=== PATIENT | male | born 1950 | race Caucasian/White ===

== ENCOUNTER 2019-05-12 07:53 | Outpatient (RCR) | payer MEDICARE, OTHER, SELFPAY ==
--- NOTE | 2019-05-12 08:36 | PTOPEVAL ---
Thank you for referring this patient to [facility]. Please review, sign, date and return this plan of care [facility]. I agree with and certify that the following plan of care is medically necessary. Referring Physician Date Admitting Provider: Attending Provider: PHYSICIAN NOT ON STAFF Referring Provider: *PT Outpatient Evaluation Start: 05/12/19 08:03 Freq: Status: Active Protocol: Document 05/12/19 08:00 IVÁN (Rec: 05/12/19 08:36 [facility] [id number]) Therapy Assessment Status Assessment Status Assessment Status Evaluation Evaluation Information Problem Diagnosis low back pain Onset 05/07/19 Additional Evaluation Detail oswestry = Subjective Information patient reports he is coming Query Text:As Reported By Patient/ to therapy for pain in his low Family back. he reprots he does have a history of low back pain, but has been flared up for a few months. he reports his pain mostly comes and goes with activities. he reports he did fall off a ladder around the time of the pain coming back. he reports the x-rays of the back were negative. patient reports he has increased pain with activity, twisting, bending/lifting, and reports the pain is across the lower portion of his back on both sides. he reports he does have some numbness and tingling in both legs down the full length of the legs all over. he reports he has tingling more than numbness in the legs. Prior Level of Function Comments Additional Prior Level of Function patient reports he has trouble Comments going up and down ladders, going up and down steps, and lifting and carrying objects. he reports he was having no issues with this prior to falling off his ladder. patient reports he is retired. Pain Assessment Timing of Pain Assessment Timing of Pain Assessment Assessment Pain Scale Pain Scale Used Numeric (1 - 10) Self Report Pain Assessment Lower Back Reported Pain Level 2 Pain Descriptio
--- NOTE | 2019-06-08 15:34 | PCPTNOTE ---
06/08/19-pt rescheduled today's appointment. -.
== END 2019-06-19 09:28 | disposition home or self-care (01) ==
LOC: CHSPT 07:53
PROVIDERS: PCP Family Medicine
DX: M54.5 Low back pain (principal)
CPT/HCPCS: 97014; 97110; 97161; 97530; G0283

== ENCOUNTER 2020-01-15 09:08 | Outpatient (RCR) | payer MEDICARE, OTHER, SELFPAY ==
--- NOTE | 2020-01-15 14:04 | PTOPEVAL ---
Thank you for referring Griffin Neff to [facility] [place].? The patient is scheduled to be seen for therapy? ____x/week for ___ weeks. Please review, sign, date and return this plan of care [facility]. I agree with and certify that the following plan of care is medically necessary. Referring Physician Date Admitting Provider: Attending Provider: Diamond Liriano, [employer] SYSTEM[employer] ADMINISTRATOR Referring Provider: *PT Outpatient Evaluation Start: 01/15/20 09:18 Freq: Status: Active Protocol: Document 01/15/20 09:15 [facility] (Rec: 01/15/20 09:56 [facility] [id number]) Therapy Assessment Status Assessment Status Assessment Status Evaluation Evaluation Information Problem Diagnosis low back pain Onset 01/08/20 Subjective Information patient reports last week he Query Text:As Reported By Patient/ got out of his car to pump gas Family and his back was locked up across the back near the bottom. he reports he went to the [facility] and was put on muscle relaxors. he reports he returned to [facility] today and is still sore. he reports he is coming to therapy to try and resolve the issue. he reports he is having increased pain in the lower back with bending, standing, position changes. he reports quick movements are worse. he reports no symptoms going down the legs. Prior Level of Function Comments Additional Prior Level of Function prior to last saturday, patient Comments reports no issues with his back. he reports he was living out his life able to travel, walk, and participate in community activities with his and family. Pain Assessment Timing of Pain Assessment Timing of Pain Assessment Assessment Pain Scale Pain Scale Used Numeric (1 - 10) Self Report Pain Assessment Lower Back Reported Pain Level 2 Pain Description Aching,Dull,Sharp Lowest Pain Intensity 2 Greatest Pain Intensity 10 Pain Score Pain Score 2: Self Report Cervical and Lumbar ROM Lumbar ROM Lumbar Flexion Active Mid [place] Query Text:Hands to: Lumbar Extension (0-40) 0 Query Text:Active in Degrees Cervical and Lumbar Muscle Testing Lumbar Strength Upper Abdominal Strength 3+F
== END 2020-02-03 23:59 | disposition home or self-care (01) ==
LOC: CHSPT 09:08
PROVIDERS: Visit Provider Nurse Practitioner
DX: M54.5 Low back pain (principal)
CPT/HCPCS: 97014; 97110; 97161; 97530; G0283

== ENCOUNTER 2020-07-25 08:20 | Outpatient (CLI) | payer MEDICARE, SELFPAY ==
[2020-07-25 10:51] LABS: Alanine Aminotransferase 23 U/L (16-63); Albumin Level 3.8 g/dL (3.4-5.0); Alkaline Phosphatase 67 U/L (46-116); Anion Gap 11 mmol/L (8-16); Aspartate Amino Transferase 13 U/L (15-37); Bilirubin,Total 0.3 mg/dL (0.00-1.00); Blood Urea Nitrogen 16 mg/dL (7-18); Calcium 8.8 mg/dL (8.5-10.1); Carbon Dioxide 25 mmol/L (21-32); Chloride 103 mmol/L (98-108); Cholesterol 235 mg/dL (0-200); Estimated Glomerular Filt Rate > 60; Glucose 100 mg/dL (70-99); HDL Direct 47 mg/dL (40-60); LDL Cholesterol Calculated 149 mg/dL (<130); Osmolality Calculated 289 mOsm/kg (285-295); Potassium 4.4 mmol/L (3.5-5.1); Sodium 139 mmol/L (136-145); Total Protein 7.1 g/dL (6.4-8.2); Triglycerides 197 mg/dL (0-150)
[2020-07-25 11:09] LABS: Free T4 Free Thyroxine Reflex 0.67 ng/dL (0.76-1.46); Thyroid Stimulating Hormone Reflex 5.19 u/IU/mL (0.36-3.74)
== END 2020-07-25 08:21 | disposition home or self-care (01) ==
LOC: CHSLAB 08:22
PROVIDERS: PCP Nurse Practitioner Family; Visit Provider Urology
DX: N40.1 Benign prostatic hyperplasia with lower urinary tract symptoms (principal); Z80.42 Family history of malignant neoplasm of prostate; E78.2 Mixed hyperlipidemia; I10 Essential (primary) hypertension
CPT/HCPCS: 36415; 80053; 80061; 84153; 84439; 84443

== ENCOUNTER 2021-10-05 06:52 | Observation (INO) | payer MEDICARE, OTHER, SELFPAY ==
[2021-10-05] VITALS (13 sets, daily range): BP systolic 105–156; BP diastolic 77–98; PULSE 53–86; RESP 10–20; TEMP 36.1–36.7; O2SAT 93–98; BMI 30.9
--- NOTE | ~2021-10-05 | CT_ITS ---
EXAMINATION: CT brain wo con DATE: 10/05/2021 07:11 INDICATION: Left-sided numbness and tingling. Dizziness. TECHNIQUE: Computed tomography (CT) of the head was performed without intravenous contrast. The mA wa s adjusted according to patient size. Iterative reconstruction technique was employed. The dose-lengt h product was 605.33 mGy-cm. COMPARISON: None FINDINGS: There is no intracranial hemorrhage, acute infarction, or abnormal intracranial mass lesion . The ventricles are normal in size. There is mild mucosal thickening in the paranasal sinuses. There are changes of ethmoidectomies. There is a trace left mastoid effusion. IMPRESSION: 1. Normal brain. Reviewed, dictated and finalized at location A. IMPRESSION: 1. Normal brain.
--- NOTE | ~2021-10-05 | US_ITS ---
EXAMINATION: US carotid duplex BI DATE: 10/05/2021 11:48 INDICATION: Stroke. TECHNIQUE: Grayscale, color Doppler, and pulsed Doppler images of the cervical carotid arteries were obtained. The degree of vessel stenosis is placed in one of the following categories: normal, <50%, 5 0-69%, >=70% but less than near-occlusion, near-occlusion, or total occlusion. Note that percent sten osis relative to normal distal artery lumen diameter is indirectly measured from velocity measurement s as described by Martin, et al. Radiology 2003; 229:340-346. COMPARISON: None. FINDINGS: RIGHT: The right common carotid artery (CCA) peak systolic velocity (PSV) is 80 cm/s. The right internal car otid artery (ICA) PSV is 65 cm/s. The right ICA end-diastolic velocity (EDV) is 19 cm/s. The right IC A/CCA PSV ratio is 0.8. Grayscale and color Doppler images yield an estimate of <50% diameter reducti on from plaque in the ICA. There is antegrade flow in the right vertebral artery. LEFT: The left CCA PSV is 68 cm/s. The left ICA PSV is 85 cm/s. The left ICA EDV is 33 cm/s. The left ICA/C CA PSV ratio is 1.2. Grayscale and color Doppler images yield an estimate of <50% diameter reduction from plaque in the ICA. There is antegrade flow in the left vertebral artery. IMPRESSION: 1. <50% stenosis in the right internal carotid artery. 2. <50% stenosis in the left internal carotid artery. Reviewed, dictated and finalized at location A.
--- NOTE | 2021-10-05 07:02 | ED.NEUROSD ---
HPI - Neuro Symptoms/Deficit General Chief Complaint: Neuro Symptoms/Deficit Stated Complaint: Numbness L side Time Seen by Provider: 10/05/21 07:02 Source: patient Mode of arrival: ambulatory Limitations: no limitations History of Present Illness HPI Narrative: 70-year-old male, smoker with a history of dyslipidemia, BPH presents to the a 2 hour history -- numbness and tingling left half of body when he woke up morning at a.m.. Went to sleep woke again 6.30 AM when noted that he had -- ongoing numbness without any tingling -- no motor deficits. No speech impairment. No Prior history stroke/ TIA patient has [facility] and has had negative stress test Onset (ago): hour(s) ( woke up this the above symptoms) History of same: No Severity: mild Quality: numb and tingling Relieving factors: none Exacerbating factors: none Context: sudden onset On Anticoagulants: No Associated symptoms: denies other symptoms Related Data Home Medications Medication Instructions Recorded Confirmed aspirin 81 mg tablet,delayed 81 mg PO DAILY 01/05/20 10/05/21 release (Adult Low Dose Aspirin) finasteride 5 mg tablet 5 mg PO DAILY 01/05/20 10/05/21 colesevelam 625 mg tablet (WelChol) 2,500 mg PO QPM 04/19/20 10/05/21 Allergies Allergy/AdvReac Type Severity Reaction Status Date / Time acetaminophen [From Vicodin] Allergy Severe unknown Verified 10/05/21 07:06 hydrocodone [From Vicodin] Allergy Severe unknown Verified 10/05/21 07:06 minocycline [From Minocin] Allergy Unknown unknown Verified 10/05/21 07:06 Penicillins Allergy Unknown unknown Verified 10/05/21 07:06 Sulfa (Sulfonamide Allergy Unknown unknown Verified 10/05/21 07:06 Antibiotics) tramadol Allergy Unknown Unknown Verified 10/05/21 07:06 Review of Systems Review of Systems: All systems reviewed & are unremarkable except as noted in HPI and below ROS unobtainable: Yes unobtainable due to endotracheal tube Constitutional: Constitutional: Reports as per HPI and Reports no additional constitutional complaints Eyes: Eyes: Reports as per HPI and Reports no additional eye complaints ENT: Reports system reviewed and no additional complaints, except as documented and Reports as per HPI Cardiovascular: Cardiovascular: Reports as per HPI and Reports no additional cardiovascular complaints Respiratory: Respiratory: Reports as per HPI and Reports no additional respiratory complaints Gastrointestinal: Gastrointestinal: Reports as per HPI and Reports no additional gastrointestinal complaints Genitourinary: Genitourinary: Reports no additional male genitourinary complaints and Reports as per HPI Musculoskeletal: Musculoskeletal: Reports no additional musculoskeletal complaints and Reports as per HPI Integumentary/Breasts: Skin/Breast: Reports system reviewed and no additional complaints, except as docu and Reports as per HPI Neurologic: Reports system reviewed and no additional complaints, except as documented and Reports as per HPI Psychiatric: Psychiatric: Reports no additional psychiatric complaints and Reports as per HPI Endocrine: Endocrine: Reports no additional endocrine complaints Hematologic/Lymphatic: Hematologic/Lymphatic: Reports no additional hematologic/lymphatic complaints and Reports as per HPI Allergic/Immunologic: Allergic/Immunologic: Reports no additional allergic/immunologic complaints and Reports as per HPI [facility] Social History Social History Smoking packs per day: 1 Smoking cigarettes per day: 20.0 Years smoked: 55 Smoking pack-years: 55.00 Smoking status: Current every day smoker Tobacco type: cigarettes Second hand tobacco smoke exposure: No Exam Const: General: healthy appearing, no acute distress and alert HENMT: Head: normal to inspection Ears: external ears normal General nose exam: Normal external nose present Face and sinus: normal facial exam
--- NOTE | 2021-10-05 07:14 | ECG_ITS ---
Measurements Intervals [place] Rate: 76 P: 77 OK: 217 QRS: -29 QRSD: 105 T: 30 QT: 416 QTc: 468 Interpretive Statements SINUS RHYTHM WITH BORDERLINE FIRST DEGREE AV BLOCK NO PREVIOUS ECG AVAILABLE FOR COMPARISON Electronically Signed On 10-05-2021 20:29:51 CDT by Rayna Machdao M.D.
[2021-10-05 07:18] LABS: Glucose Point of Care 110 mg/dl (65-105)
[2021-10-05] MEDS: ASPIRIN 81 MG CHEWABLE TABLET 324 MG PO (07:25)
[2021-10-05 07:33] LABS: Basophils Absolute Auto 0.04 K/mm3 (0.00-0.10); Basophils Percent Auto 0.5 % (0.0-1.0); Eosinophils Absolute Auto 0.14 K/mm3 (0.02-0.50); Eosinophils Percent Auto 1.8 % (1.0-6.0); Hemoglobin 14.4 g/dL (12.4-15.3); Immature Granulocyte Absolute 0.02 K/mm3 (0.00-0.00); Immature Granulocyte Percent A 0.3 % (0.0-0.0); Lymphocytes Percent Auto 42.5 % (18.0-42.0); Mean Corpuscular HGB Conc 32.7 g/dL (32.0-36.0); Mean Corpuscular Hemoglobin 32.9 pg (27.0-31.0); Mean Corpuscular Volume 100.5 fL (78.0-102.0); Mean Platelet Volume 9.4 fl (8.7-11.0); Monocytes Absolute Auto 0.78 K/mm3 (0.10-0.90); Monocytes Percent Auto 10.1 % (2.0-11.0); Neutrophils Absolute Auto 3.5 K/mm3 (1.7-7.2); Neutrophils Percent Auto 44.8 % (50.0-70.0); Platelet Count Result 283 K/mm3 (150-420); Red Blood Count 4.38 M/mm3 (4.70-6.10); Red Cell Distribution Width 13.4 % (11.6-14.4); White Blood Count 7.8 K/mm3 (4.8-10.8)
[2021-10-05 07:47] LABS: Partial Thromboplastin Time 28.7 SEC (23.90-30.70); Prothrombin Time 10.3 Seconds (9.50-12.10)
[2021-10-05 07:55] LABS: Amphetamine Screen Urine Negative (Negative); Barbiturate Screen Urine Negative (Negative); Benzodiazepines Screen Urine Negative (Negative); Cannabinoid Screen Urine Negative (Negative); Cocaine Screen Urine Negative (Negative); Methadone Screen Urine Negative (Negative); Opiate Screen Urine Negative (Negative); Phencyclidine Screen Urine Negative (Negative)
[2021-10-05 07:57] LABS: Alanine Aminotransferase 34 U/L (16-63); Albumin Level 3.4 g/dL (3.4-5.0); Alkaline Phosphatase 67 U/L (46-116); Anion Gap 11 mmol/L (8-16); Aspartate Amino Transferase 14 U/L (15-37); Bilirubin,Total 0.3 mg/dL (0.00-1.00); Blood Urea Nitrogen 20 mg/dL (7-18); Calcium 8.5 mg/dL (8.5-10.1); Carbon Dioxide 23 mmol/L (21-32); Chloride 107 mmol/L (98-108); Estimated CRCL calculation 55 ml/min; Estimated Glomerular Filt Rate > 60; Glucose 125 mg/dL (70-99); NT Pro B Type Natriuretic Pept 23 pg/mL (0-125); Osmolality Calculated 295 mOsm/kg (285-295); Sodium 141 mmol/L (136-145); Thyroid Stimulating Hormone 3.21 uIU/mL (0.36-3.74); Total Protein 7.1 g/dL (6.4-8.2); Troponin I 7.9 ng/L (0.00-60.4)
[2021-10-05 07:58] LABS: Ethanol < 3 mg/dL (0-6)
--- NOTE | 2021-10-05 09:10 | ADMGEN ---
This patient, Griffin Neff, was admitted to 2nd Floor Room 203-2 to rule out stroke. Patient/family oriented to hospital policies and general routines including ID bracelet, bed and alarms, visiting hours, pain management, procedures, bathroom and other care routines, personal items, smoking policy, room service/diet, and visiting hours. Information on how to activate the Rapid Response Team has been discussed. Patient/Family are encouraged to report perceived risks to care and to ask questions if they do not understand what they are told or what they should do.
[2021-10-05] MEDS: ASPIRIN 81 MG ENTERIC TABLET PO (10:59)
[2021-10-05] MEDS: FINASTERIDE 5 MG TABLET PO (10:59)
--- NOTE | 2021-10-05 11:14 | PC.NURSE ---
spoke with patient about medication list. Patient states he no longer takes the welchol. Provided with med list. Medications added to medlist.
[2021-10-06] VITALS: BP 120/78; PULSE 55; RESP 18; TEMP 36.6; O2SAT 95
--- NOTE | 2021-10-06 04:48 | PC.NURSE ---
VS at 8PM bp-152/81 P-56 T-97.7 R-18 VS at 4 AM bp-140/89 p-83 R-20 T-98.9
[2021-10-06 07:45] VITALS: BP 146/92; PULSE 56; RESP 16; TEMP 36.3; O2SAT 95
--- NOTE | 2021-10-06 07:55 | PM.SD2 ---
Same Day Admit/Disch: HPI History of Present Illness Chief complaint: CVA Narrative: Griffin Neff is a 70 year old male that has had some numbness and tingling on the left side in his toes and his finger. Patient felt it when he got out of the bed and stood on his tippy toes. PMFSH Social History Social History Smoking packs per day: 1 Smoking cigarettes per day: 20.0 Years smoked: 50 Smoking pack-years: 50.00 Smoking status: Current every day smoker Tobacco type: cigarettes Second hand tobacco smoke exposure: No Alcohol intake: current Drinks per week: 3 Substance use: never Substance use type: does not use Spiritual care concerns: No Comments At time as signature, I have reviewed and agree with nursing past medical, social, surgical and family history. Please see nursing chart for further information. There is no relevant family history pertinent to the presenting complaint. Same Day Admit/Disch: Med Pre-admit Medications Home Medications Medication Instructions Recorded Confirmed Type aspirin 81 mg tablet,delayed 81 mg PO DAILY 01/05/20 10/05/21 History release (Adult Low Dose Aspirin) finasteride 5 mg tablet 5 mg PO DAILY 01/05/20 10/05/21 History azelastine 137 mcg (0.1 %) nasal See Rx Instructions .Route 04/24/21 10/05/21 Rx spray aerosol .COMPLEX #30 mL alfuzosin 10 mg tablet,extended 10 mg PO DAILY 10/05/21 10/05/21 History release 24 hr ezetimibe 10 mg tablet 10 mg PO DAILY 10/05/21 10/05/21 History albuterol sulfate 90 mcg/actuation 2 puff inhalation QID PRN 10/06/21 Rx aerosol inhaler shortness of breath or wheezing #8.5 grams Exam Narrative: GENERAL:Well-appearing, well-nourished, and in no acute distress. HEAD:Normocephalic, atraumatic. EYES: PERRLA and EOMI. ENT: Nares clear, no rhinorrhea or epistaxis. Mucous membranes moist. NECK: Supple. CHEST: Clear to auscultation. No respiratory distress. HEART: Regular rate and rhythm. Normal peripheral pulses. ABDOMEN: Soft, nontender, nondistended, normal active bowel sounds. EXTREMITIES: Normal range of motion. No edema. SKIN: Warm, dry, no rash. left arm abrasion NEURO: No focal deficits. Alert and oriented x3. DS: Data Data Completed and Pending Labs on day of discharge: Labs from last 24 hours 10/05/21 10/05/21 10/05/21 07:43 07:28 07:28 Sodium 141 Potassium 4.0 Chloride 107 Carbon Dioxide 23 Anion Gap 11 BUN 20 H Creatinine 1.14 Estim Creat Clear Calc 55 Estimated GFR > 60 Glucose 125 H Calculated Osmolality 295 Calcium 8.5 Total Bilirubin 0.3 AST 14 L ALT 34 Alkaline Phosphatase 67 Troponin I 7.9 NT-Pro-B Natriuret Pep 23 Total Protein 7.1 Albumin 3.4 TSH 3.21 Urine Opiates Screen Negative Urine Methadone Screen Negative Ur Barbiturates Screen Negative Ur Phencyclidine Scrn Negative Ur Amphetamine Screen Negative U Benzodiazepines Scrn Negative Urine Cocaine Screen Negative U Cannabinoids Screen Negative Ethyl Alcohol < 3 DS: Summary Hospital Course Reason for hospitalization: numbness and tingling rule out stroke Hospital Course: This is a 70-year-old male that presents to the emergency room as he had started to have some numbness and tingling 3 hours prior woke up and went back to bed when he woke up he still had numbness and tingling to his left arm, fingers and bilateral foot and toes. According to patient he has not had any deficits with speaking and or thinking and he has been evaluated before by [facility] and has had a negative stress test within the last few years. This morning patient states that the numbness and tingling seems to have resolved and he is feeling okay. Patient has a past medical history of hyperlipidemia, diabetes, smoker, BPH, hearing loss. Patient has had during his stay an echo as well as ca
[2021-10-06] MEDS: ASPIRIN 81 MG ENTERIC TABLET PO (09:11)
[2021-10-06] MEDS: FINASTERIDE 5 MG TABLET PO (09:11)
--- NOTE | 2021-10-06 09:45 | PC.NURSE ---
Patient being discharged home. IV site removed, tip intact, dressing applied to site. All discharge instructions and education reviewed with patient. Patient states understanding. Denies any questions. All belongings gathered and sent home with patient. Patient left floor ambulatory, accompanied to front door by this nurse, left via private vehicle.
--- NOTE | 2021-10-06 09:57 | PCOTNOTE ---
OT attempted evaluation however patient in process of being discharged. Per nursing and PT, patient is independent with functional mobility. MS
--- NOTE | 2021-10-09 10:20 | PC.NURSE ---
Pt states he received and understood his discharge instructions. Pt has no other comments.
== END 2021-10-06 09:45 | disposition home or self-care (01) ==
LOC: CHSED 08:58 → CHS2ND 09:15
PROVIDERS: Admitting Provider Internal Medicine; Emergency Provider Internal Medicine Critical Care Medicine; Visit Provider Internal Medicine
DX: R20.0 Anesthesia of skin (principal); I65.23 Occlusion and stenosis of bilateral carotid arteries; E78.5 Hyperlipidemia, unspecified; N40.0 Benign prostatic hyperplasia without lower urinary tract symptoms; F17.210 Nicotine dependence, cigarettes, uncomplicated; R29.701 NIHSS score 1; Z79.82 Long term (current) use of aspirin; Z79.899 Other long term (current) drug therapy
CPT/HCPCS: 36415; 70450; 80053; 80307; 82948; 83880; 84443; 84484; 85025; 85610; 85730; 93005; 93880; 97161; 99285; A9270; G0378

== ENCOUNTER 2022-01-11 08:32 | Outpatient (CLI) | payer MEDICARE, SELFPAY ==
[2022-01-11 09:39] LABS: Cholesterol 180 mg/dL (0-200); HDL Direct 59 mg/dL (40-60); LDL Cholesterol Calculated 85 mg/dL (<130); Prostate Specific Antigen 1.7 ng/mL (< OR = 4.0); Triglycerides 179 mg/dL (0-150)
== END 2022-01-11 08:33 | disposition home or self-care (01) ==
LOC: CHSLAB 08:36
PROVIDERS: PCP Nurse Practitioner; Visit Provider Urology
DX: E78.2 Mixed hyperlipidemia (principal); N40.1 Benign prostatic hyperplasia with lower urinary tract symptoms
CPT/HCPCS: 36415; 80061; 84153

== ENCOUNTER 2022-05-07 09:59 | Outpatient (RCR) | payer MEDICARE, OTHER, SELFPAY ==
--- NOTE | 2022-05-07 11:17 | PTOPEVAL1 ---
Assessment and note entered by Griffin Lawson Evaluation Information Assessment Status Evaluation Diagnosis bilateral foot pain Onset 02/04/22 Subjective Information Pt. reports that he developed bilateral foot pain about 3-4 months ago. He describes pain mostly around the heel, greater on the right than the left. He states that pain is worsened with walking and prolonged standing. He states that he will notice pain first thing in the morning after getting out of bed. He can only walk for about 10-15 minutes prior to increased pain. He states that he completes all IADL's but does perform more slowly and with pain. He states that his goal is to decrease his pain. Reported Pain Level Pain Score 4: Self Report Assessment PT Clinical Summary Pt. is a 71 year old male who enters the clinic with bilateral foot pain. Pt. presentation is consistent with plantar fasciitis. He presents with impaired ROM, impaired gait, and pain on this date. Continued treatment is indicated in order to improve these areas to allow the pt. to participate in all IADL's with improved comfort and efficiency. Plan of Care Interventions Electrical Stimulation,Gait Training,Hot Pack/Cold Pack,Manual Therapy,Neuro Re-education, Therapeutic Activities,Therapeutic Exercise, Ultrasound Other Interventions dry needling PT Services Indicated Yes Treatment Frequency and 2x/week x 8 visits Duration These treatments will address the objective and functional deficits as defined above. The patient will be advanced safely and appropriately in order for the patient to progress towards his/her prior level of function. Additional exercises will be introduced and as well as a comprehensive home exercise program upon discharge, if needed, ?to ensure carryover of functional gains achieved in the clinic. This treatment plan has been reviewed and agreement upon by the patient.
== END 2022-07-02 13:11 | disposition home or self-care (01) ==
LOC: CHSPT 09:59
PROVIDERS: Visit Provider Nurse Practitioner
DX: M79.671 Pain in right foot (principal)
CPT/HCPCS: 97110; 97112; 97140; 97161; 97530

== ENCOUNTER 2022-08-15 08:09 | Outpatient (CLI) | payer MEDICARE, SELFPAY ==
[2022-08-15 08:57] LABS: Alanine Aminotransferase 45 U/L (16-63); Albumin Level 3.8 g/dL (3.4-5.0); Alkaline Phosphatase 63 U/L (46-116); Anion Gap 7 mmol/L (8-16); Aspartate Amino Transferase 20 U/L (15-37); Bilirubin,Total 0.4 mg/dL (0.00-1.00); Blood Urea Nitrogen 15 mg/dL (7-18); Calcium 9.3 mg/dL (8.5-10.1); Carbon Dioxide 28 mmol/L (21-32); Chloride 106 mmol/L (98-108); Cholesterol 189 mg/dL (0-200); Estimated Glomerular Filt Rate > 60; Glucose 107 mg/dL (70-99); HDL Direct 66 mg/dL (40-60); LDL Cholesterol Calculated 95 mg/dL (<130); Osmolality Calculated 292 mOsm/kg (285-295); Potassium 4.4 mmol/L (3.5-5.1); Sodium 141 mmol/L (136-145); Total Protein 7.2 g/dL (6.4-8.2); Triglycerides 140 mg/dL (0-150)
== END 2022-08-15 08:10 | disposition home or self-care (01) ==
LOC: CHSLAB 08:13
PROVIDERS: PCP Family Medicine
DX: E78.2 Mixed hyperlipidemia (principal)
CPT/HCPCS: 36415; 80053; 80061

== ENCOUNTER 2023-09-26 10:53 | Outpatient (CLI) | payer MEDICARE, SELFPAY ==
[2023-09-26 12:20] LABS: Prostate Specific Antigen 1.1 ng/mL (< OR = 4.0)
== END 2023-09-26 10:54 | disposition home or self-care (01) ==
LOC: CHSLAB 10:59
DX: N40.1 Benign prostatic hyperplasia with lower urinary tract symptoms (principal)
CPT/HCPCS: 36415; 84153

== ENCOUNTER 2024-12-21 09:43 | Outpatient (RCR) | payer MEDICARE, OTHER, SELFPAY ==
--- NOTE | 2024-12-21 10:59 | OPREHPOC ---
Outpatient Therapy Plan of Care This is a Multidisciplinary Plan of Care that may contain components documented by all disciplines (PT, OT, and ST.) PT Problem 1 PT Problem #1 Knowledge Deficit PT Goal 1 Goal / Goal Update independent and compliant with HEP Target Visit 6 PT Problem 2 PT Problem #2 Pain PT Goal 1 Goal / Goal Update reduce frequency of pain to 50% Target Visit 12 PT Problem 3 PT Problem #3 Impaired Range of Motion PT Goal 1 Goal / Goal Update improve cervical rotation L to 70 degrees or better patient to report no pain in the L shoulder or neck with cervical rom Target Visit 12 PT Problem 4 PT Problem #4 Impaired Functional Mobility PT Goal 1 Goal / Goal Update patient to report reduction of symptoms by 50% or better patient to display 10% or less deficits on the quick dash patient to display 10% or less deficits on NDI Target Visit 12 PT Problem 5 PT Problem #5 Impaired Strength PT Goal 1 Goal / Goal Update 5/5 bilateral UE strength overall Target Visit 12
--- NOTE | 2024-12-21 10:59 | PTOPEVAL1 ---
Assessment and note entered by JT File, PT Evaluation Information Assessment Status Evaluation ICD-10 Condition Codes (PT) Cervicalgia M54.2,Pain in left shoulder M25.512 Onset 12/15/24 Subjective Information patient reports pain from the L neck down to the L lateral arm. he reports he is getting an MRI of the L shoulder tomorrow. he reports he has had surgery on L shoulder for RTC and biceps tendon repair. he reports the symptoms come and go and change. he reports most frequently he feels the pain in the L UT. he reports he is unsure what causes increased pain and symptoms down the side, but increased activity will cause him pain. he reports no NTB symptoms. he reports he is able to do all of his activities, but suffers at the end of the day due to his level of activity. Reported Pain Level Pain Score 2: Self Report Assessment PT Clinical Summary mr. nye presents to skilled PT with an order for his L shoulder. however, after review of his symptoms and testing today, it appears his issue may actually be coming from the neck. he displays positive Spurling's tests today, and only positive L shoulder symptoms with impingement test. his pain is also reproduced with cervical motion to his L side. continued skilled PT is indicated, and will focus on patients cervical and UE objective/ functional deficits. it would benefit the patient to have his MRI changed from L shoulder to cervical spine. Plan of Care Interventions Electrical Stimulation,Hot Pack/Cold Pack,Manual Therapy,Neuro Re-education,Patient/Caregiver Education,Therapeutic Activities,Therapeutic Exercise PT Services Indicated Yes Treatment Frequency and 3x weekly for 12 visits Duration These treatments will address the objective and functional deficits as defined above. The patient will be advanced safely and appropriately in order for the patient to progress towards his/her prior level of function. Additional exercises will be introduced and as well as a comprehensive home exercise program upon discharge, if needed, ?to ensure carryover of functional gains achieved in the clinic. This treatment plan has been reviewed and agreement upon by the patient.
== END 2025-01-11 20:00 | disposition home or self-care (01) ==
LOC: CHSPT 09:43
PROVIDERS: PCP Nurse Practitioner Family; Visit Provider Nurse Practitioner Family
DX: M25.512 Pain in left shoulder (principal); M54.2 Cervicalgia
CPT/HCPCS: 97012; 97014; 97110; 97112; 97140; 97161; G0283

== ENCOUNTER 2025-01-11 23:12 | Emergency (ER) | payer MEDICARE, OTHER, SELFPAY ==
--- NOTE | ~2025-01-11 | XR_ITS ---
Examination: XR chest 2V Clinical History: LEFT SIDEWALL CP/SOB/HX OF COPD Comparison: None Technique: PA and Lateral Findings: Cardiomediastinal silhouette normal size and configuration. Lungs clear. No acute bony abnormality. IMPRESSION: 1. No acute cardiopulmonary findings. Reviewed, dictated and finalized at location R.
--- NOTE | 2025-01-11 23:13 | ECG_ITS ---
Test Date: 2025-01-11 23:15:24 Measurements Intervals [place] Rate: 58 P: 15 DC: 210 QRS: -36 QRSD: 127 T: 48 QT: 447 QTc: 442 Interpretive Statements SINUS BRADYCARDIA WITH FIRST DEGREE AV BLOCK LEFT AXIS DEVIATION [QRS AXIS < -30] POSSIBLE RIGHT VENTRICULAR CONDUCTION DELAY [RSR (QR) IN V1/V2] MODERATE ST DEPRESSION [0.05+ mV ST DEPRESSION], CONSIDER ANTEROLATERAL ISCHEMIA ABNORMAL ECG No previous ECG available for comparison Electronically Signed On 01-12-2025 08:11:18 CDT by Elio Winkler M.D.
[2025-01-11 23:14] VITALS: BP 197/97; PULSE 58; RESP 20; TEMP 36.2; O2SAT 99
[2025-01-11 23:15] VITALS: PULSE 55; O2SAT 98
--- NOTE | 2025-01-11 23:15 | ED_ITS ---
HPI - Chest Pain General Chief Complaint: Chest Pain Stated Complaint: chest wall pain Time Seen by Provider: 01/11/25 23:15 Source: patient Mode of arrival: ambulatory Limitations: no limitations History of Present Illness HPI narrative: 74 year old male presents to the Emergency Department complaining of left chest pain. Has had intermittently for 4 days. No pain at present. Tonight had some tingling to left arm. Had PT to left shoulder today. Denies shortness of breath from his usual, nausea or diaphoresis. Patient is smoker. History COPD. MD complaint: chest pain Onset (ago): day(s) (4) Timing of current episode: episodic and now resolved Onset: during rest Pain location: left chest Pain radiation: left arm (tingling) Severity: mild Relieving factors: nothing Exacerbating factors: nothing Risk Factors Coronary artery disease risk factors: smoking history and hyperlipidemia Related Data Home Medications ?Medication ?Instructions ?Recorded ?Confirmed ?Last Taken ?Type aspirin 81 mg tablet,delayed 81 mg PO DAILY 01/05/20 1 Unknown History release (Adult Low Dose Aspirin) finasteride 5 mg tablet 5 mg PO DAILY 01/05/2002/05 Unknown History alfuzosin 10 mg tablet,extended 10 mg PO DAILY 2 02/05/22 Unknown History release 24 hr ezetimibe 10 mg tablet 10 mg PO DAILY 10/05/2101/27 Unknown History atorvastatin 20 mg tablet 20 mg PO .COMPLEX 01/11/25 Unknown History Allergies Allergy/AdvReac Type Severity Reaction Status Date / Time hydrocodone (From Vicodin) Allergy Severe unknown Verified 01/11/25 23:26 minocycline (From Minocin) Allergy Unknown unknown Verified 01/11/25 23:26 Penicillins Allergy Unknown unknown Verified 01/11/25 23:26 Sulfa (Sulfonamide Allergy Unknown unknown Verified 01/11/25 23:26 Antibiotics) tramadol Allergy Unknown Unknown Verified 01/11/25 23:27 Review of Systems 2 Review of Systems: All systems reviewed & are unremarkable except as noted in HPI and below Constitutional: Constitutional: Reports as per HPI, Denies chills and Denies fever(s) Eyes: Eyes: Reports as per HPI ENT: Reports system reviewed and no additional complaints, except as documented Cardiovascular: Cardiovascular: Reports as per HPI and Reports chest pain Respiratory: Respiratory: Reports as per HPI and Reports no additional respiratory complaints Gastrointestinal: Gastrointestinal: Reports as per HPI, Denies abdominal pain, Denies diarrhea, Denies nausea and Denies vomiting Genitourinary: Genitourinary: Reports no additional male genitourinary complaints Musculoskeletal: Musculoskeletal: Reports no additional musculoskeletal complaints Integumentary/Breasts: Skin/Breast: Reports system reviewed and no additional complaints, except as docu Neurologic: Reports system reviewed and no additional complaints, except as documented Psychiatric: Psychiatric: Reports no additional psychiatric complaints Endocrine: Endocrine: Reports no additional endocrine complaints Hematologic/Lymphatic: Hematologic/Lymphatic: Reports no additional hematologic/lymphatic complaints Allergic/Immunologic: Allergic/Immunologic: Reports no additional allergic/immunologic complaints [facility] Social History Social History Smoking packs per day: 1 Smoking cigarettes per day: 20.0 Years smoked: 50 Smoking pack-years: 50.00 Smoking status: Current every day smoker Tobacco type: cigarettes Second hand tobacco smoke exposure: No Alcohol intake: current Drinks per week: 3 Substance use: never Substance use type: does not use Spiritual care concerns: No Exam 2 Const: General: healthy appearing Nutritional Appearance: well nourished Orientation/consciousness: patient oriented x3 Limitations: no limitations HENMT: Head: normal to inspection Ears: external ears normal F mina/Nose/Sinus: Normal external nose present Face and sinus: normal facial exam Mouth: Yes Normal oral and palatal mucosa present Eyes: Pupils: Equal, round and reactive pupils present EOM: EOMs intact bilaterally Direct Ophthalmoscopy: no photophobia Neck: Neck: normal visual inspection Chest: Chest palpation & inspection: normal inspection of the chest and no tenderness Resp: Effort & Inspection: normal respiratory effort Auscultation: clear to auscultation bilaterally Cardio: Rate: bradycardic Rhythm: regular rhythm Heart sounds: no murmurs GI: Inspection: non-distended GI Palp: Yes Soft to palpation and No Tenderness to palpation present (GI) Auscultation: normal bowel sounds : General: Yes bladder normal to palpation Back/Spine/Pelvis: Back: no CVA tenderness Skin: General skin exam: normal color Rashes: no rashes Neuro: General: patient oriented x3 and moves all extremities Speech: n ormal speech Gait exam (Neuro): Normal gait present Other: grossly normal Extrem: General: normal to inspection and no clubbing, cyanosis or edema Psych: Mental Status: mental status grossly normal Affect: normal affect Attitude: cooperative Course Course Emergency Course: 74 y/o male presents to the Emergency Department complaining of some left sided chest pains. Onset 4 days ago. Tonight had some numbness to left arm. He had PT for left shoulder today and thought maybe that was from his shoulder. No shortness of breath aside from his baseine associated with COPD /smoking. No nauea, or diaphoresis. Had echocardiogram recently that was unremarkable. PE: no acute findings CBC: H/H 13.6/41.1, Plt 248; wbc 7.4 with 41 S, 45 L, 10 M CMP: Na 142, K 3.8, Cl 107, CO2 26, Glc 119, BUN 18, Cr 1.04; LFT's normal; eGFR >60 TNI: <0.012 EKG: SB, 58, 1st degree AVB, LAD, NSST D-dimer: 0.53 [age corrected normal < 0.74] M.4 CXR: COPD, NAD Tx: conveyor monitor, pulse ox, saline lock. Patient pain-free at exam. In discussion of results he admits he has had a few episodes of left lateral chest pains while here that have resolved. His results are reviewed and discussed with him and his . Differential diagnoses, further management strategies discussed. He states several years ago he did have stress tests and w/u that were unremarkable. He recently had echo that was unremarkable. That is encouraging. He does not wish to have serial cardiac enzymes or stay for further monitoring or work up. He has an appointment with PCP in 1 week. He is encouraged to call PCP in morning. He takes an aspirin 81 mg daily. His Heart Score is 4. Patient and voice understanding and both would like to go home and follow up PCP. He is encouraged to return immediately if any problems. Vital Signs Vital signs: Vital Signs Temperature 36.2 C L 01/11/25 23:14 Pulse Rate 58 L 01/11/25 23:14 Respiratory Rate 20 01/11/25 23:14 Blood Pressure 197/97 H 01/11/25 23:14 Pulse Oximetry 99 01/11/25 23:14 Oxygen Delivery Room Air 01/11/25 23:14 Temperature 36.2 C L 01/11/25 23:14 Pulse Rate 56 L 01/12/25 00:00 Respiratory Rate 13 01/11/25 23:45 Blood Pressure 183/91 H 01/12/25 00:00 Pulse Oximetry 98 01/12/25 00:00 Oxygen Delivery Room Air 01/11/25 23:15 MDM - Chest Pain Differential Diagnosis Differential diagnosis: Likely pneumothorax, stable angina, unstable angina pectoris, atypical chest pain, st elevation myocardial infarction, costochondritis and chest pain Medical Records Data Attestation: I reviewed the patient's medical records. Lab Data Attestation: I reviewed the patient's lab results. 01/12/25 00:03 01/12/25 00:03 Labs: Lab Results 01/12/25 Range/Units 00:03 WBC 7.4 (4.8-10.8) K/mm3 RBC 4.14 L (4.70-6.10) M/mm3 Hgb 13.6 (12.4-15.3) g/dL Hct 41.1 (37.0-46.0) % MCV 99.3 (78.0-102.0) fL MCH 32.9 H (27.0-31.0) pg MCHC 33.1 (32-36) g/dL RDW 13.3 (11.6-14.4) % Plt Count 248 (150-420) K/mm3 MPV 9.1 (8.7-11.0) fl Immature Gran % (Auto) 0.3 H (0.0-0.0) % Neut % (Auto) 41.1 L (50.0-70.0) % Lymph % (Auto) 45.4 H (18.0-42.0) % [place] % (Auto) 9.7 (2.0-11.0) % Eos % (Auto) 3.0 (1.0-6.0) % Baso % (Auto) 0.5 (0.0-1.0) % Lymph # (Auto) 3.34 (1.10-4.50) K/mm3 [place] # (Auto) 0.71 (0.10-0.90) K/mm3 Eos # (Auto) 0.22 (0.02-0.50) K/mm3 Baso # (Auto) 0.04 (0.00-0.10) K/mm3 Abs Immat Gran (auto) 0.02 H (0.00-0.00) K/mm3 Absolute Neuts (auto) 3.02 (1.70-7.20) K/mm3 Absolute Nucleated RBC 0.00 (0.00-0.00) K/mm3 Nucleated RBC % 0.0 (0-0.0) % D-Dimer 0.53 H (0.19-0.50) mg/L Sodium 142 (137-145) mmol/L Potassium 3.8 (3.4-5.0) mmol/L Chloride 107 (98-107) mmol/L Carbon Dioxide 26 (22-30) mmol/L Anion Gap 9 (4-12) mmol/L BUN 18 (9-20) mg/dL Creatinine 1.04 (0.7-1.3) mg/dL Estim Creat Clear Calc 62 ml/min Estimated GFR > 60 (59 - ) Glucose 119 H (65-110) mg/dL Calculated Osmolality 296 H (285-295) mOsm/kg Calcium 9.2 (8.4-10.2) mg/dL Magnesium 2.4 H (1.6-2.3) mg/dL Total Bilirubin 0.4 (0.2-1.3) mg/dL AST 51 (17-59) U/L ALT 43 (6-50) U/L Alkaline Phosphatase 73 (38-126) U/L Troponin I < 0.012 (0.000-0.034) ng/mL Total Protein 7.9 (6.3-8.2) g/dL Albumin 4.2 (3.5-5.1) g/dL Discharge Plan Discharge Clinical Impression: Atypical chest pain Patient Disposition: Home Condition: Stable Instructions: Chest Pain (ED) Additional Instructions: Continue home medications Follow up Primary Care Physician Return immediately if problems Patient Language: Bolivian Prescriptions: No Action ezetimibe 10 mg Tablet 10 mg PO DAILY alfuzosin 10 mg Tablet Extended Release 24 Hr 10 mg PO DAILY Rx Instructions: administer after the same meal each day atorvastatin 20 mg tablet 20 mg PO .COMPLEX Rx Instructions: 20 mg orally mon, wed, fri; finasteride 5 mg tablet 5 mg PO DAILY aspirin [Adult Low Dose Aspirin] 81 mg tablet,delayed release (DR/EC) 81 mg PO DAILY fluticasone propionate [Flonase Allergy Relief] 50 mcg/actuation spray,suspension 1 - 2 spray intranasal BID Qty: 16 3RF Rx Instructions: administer into each nostril azelastine 137 mcg (0.1 %) aerosol,spray See Rx Instructions .ROUTE .COMPLEX Qty: 30 6RF Dose Instruction: USE 1 SPRAY NASALLY DAILY TO TWICE A DAY Rx Instructions: USE 1 SPRAY NASALLY DAILY TO TWICE A DAY Follow-up/Referrals: Ramya [facility] [Primary Care Provider, Nursing] Time of Disposition: 00:49
[2025-01-11 23:31] VITALS: BP 180/88; PULSE 57; RESP 16; O2SAT 98
[2025-01-11 23:45] VITALS: BP 170/85; PULSE 53; RESP 13; O2SAT 95
[2025-01-11 23:55] VITALS: BP 182/79; PULSE 54; O2SAT 99
[2025-01-12] VITALS: BP 183/91; PULSE 56; O2SAT 98
[2025-01-12 00:06] LABS: Hematocrit 41.1 % (37.0-46.0); Hemoglobin 13.6 g/dL (12.4-15.3); Immature Granulocyte Percent A 0.3 % (0.0-0.0); Lymphocytes Absolute Auto 3.34 K/mm3 (1.10-4.50); Mean Corpuscular HGB Conc 33.1 g/dL (32-36); Mean Corpuscular Hemoglobin 32.9 pg (27.0-31.0); Mean Corpuscular Volume 99.3 fL (78.0-102.0); Nucleated Red Blood Cells Absolute Auto 0.00 K/mm3 (0.00-0.00); Nucleated Red Blood Cells Perc 0.0 % (0-0.0); Platelet Count Result 248 K/mm3 (150-420); Red Blood Count 4.14 M/mm3 (4.70-6.10); White Blood Count 7.4 K/mm3 (4.8-10.8)
[2025-01-12 00:18] LABS: Alanine Aminotransferase 43 U/L (6-50); Albumin Level 4.2 g/dL (3.5-5.1); Alkaline Phosphatase 73 U/L (38-126); Anion Gap 9 mmol/L (4-12); Aspartate Amino Transferase 51 U/L (17-59); Bilirubin,Total 0.4 mg/dL (0.2-1.3); Blood Urea Nitrogen 18 mg/dL (9-20); Calcium 9.2 mg/dL (8.4-10.2); Carbon Dioxide 26 mmol/L (22-30); Chloride 107 mmol/L (98-107); Estimated CRCL calculation 62 ml/min; Estimated Glomerular Filt Rate > 60; Glucose 119 mg/dL (65-110); Magnesium 2.4 mg/dL (1.6-2.3); Osmolality Calculated 296 mOsm/kg (285-295); Potassium 3.8 mmol/L (3.4-5.0); Sodium 142 mmol/L (137-145); Total Protein 7.9 g/dL (6.3-8.2)
[2025-01-12 00:30] LABS: Troponin I < 0.012 ng/mL (0.000-0.034)
--- NOTE | 2025-01-12 00:47 | PC.NURSE ---
ERP discussed POC and further testing as needed. Pt has no pain currently and will return if anything changes. He doesn't want anymore monitoring or further testing at this time. He will f/u w/ his PCP.
[2025-01-12 00:52] VITALS: BP 166/79; PULSE 56; RESP 20; TEMP 36.9; O2SAT 98
== END 2025-01-12 00:52 | disposition home or self-care (01) ==
PROVIDERS: Emergency Provider Emergency Medicine
DX: R07.89 Other chest pain (principal); J44.9 Chronic obstructive pulmonary disease, unspecified; F17.210 Nicotine dependence, cigarettes, uncomplicated; Z79.899 Other long term (current) drug therapy
CPT/HCPCS: 36415; 71046; 80053; 83735; 84484; 85025; 85380; 93005; 99284

== ENCOUNTER 2025-04-21 23:06 | Emergency (ER) | payer SELFPAY ==
--- NOTE | ~2025-04-21 | XR_ITS ---
EXAMINATION: XR chest 1V portable 04/21/2025 23:27 INDICATION: Shortness of breath and cough PROCEDURE: AP portable chest COMPARISON: 01/11/2025 FINDINGS: The lungs are clear. The cardiomediastinal silhouette is within normal limits. There are no pleural effusions. There is no pneumothorax suspected. IMPRESSION: 1: NO ACUTE CARDIOPULMONARY DISEASE. Reviewed, dictated and finalized at location O. TECHNICIAN
--- NOTE | ~2025-04-21 | CT_ITS ---
EXAMINATION: CTA chest PE protocol DATE: 04/22/2025 00:45 INDICATION: Shortness of breath. TECHNIQUE: Computed tomography angiography (CTA) of the chest was performed with 100 mL Omnipaque-350 intravenous contrast timed to evaluate the pulmonary arteries. Coronal maximum intensity projection 3D-reconstructions were created by the technologist. Automated exposure control and iterative reconstruction technique were employed. The dose-length product was 668.00 mGy-cm. COMPARISON: None. FINDINGS: There is moderate emphysema. There is septal thickening in the lungs with an upper lung predominance. There are small nodules in the upper lungs. There are mild airspace opacities in right upper lobe. No pleural effusion. The heart size is normal. There are coronary artery calcifications. No pericardial effusion. There is no pulmonary embolus. There is wall thickening in the esophagus. There is severe cervical spondylosis and moderate thoracic spondylosis. IMPRESSION: 1. No pulmonary embolus. 2. Moderate emphysema. 3. Septal thickening and nodules in the upper lungs and mild airspace opacities in right upper lobe, most likely pneumonia. 4. Wall thickening of the esophagus, likely esophagitis. Reviewed, dictated and finalized at location E. SMISSION AND COORDINATION ENGINEER
[2025-04-21 23:07] VITALS: BP 192/104; PULSE 78; RESP 24; TEMP 36.2; O2SAT 98
--- NOTE | 2025-04-21 23:08 | ED.SOB ---
HPI - SOB/Dyspnea General Chief Complaint: Shortness of Breath/Dyspnea Stated Complaint: shortness of breath Time Seen by Provider: 04/21/25 23:08 Source: patient Mode of arrival: ambulatory Limitations: no limitations History of Present Illness HPI Narrative: Patient is a 74-year-old male with acute onset of shortness of breath this evening. No chest pain. No nausea vomiting or diarrhea. No abdominal pain. MD elicited complaint: shortness of breath Pertinent past history: COPD Onset (ago): day(s) (One) Context: other (Patient have an acute onset of shortness of breath) Timing: constant Severity: moderate Exacerbating factors: nothing Relieving factors: nothing Known history of: COPD Associated symptoms: denies other symptoms Treatment prior to arrival: none Related Data Home oxygen amount: none Home Medications ?Medication ?Instructions ?Recorded ?Confirmed ?Last Taken ?Type aspirin 81 mg tablet,delayed 81 mg PO DAILY 01/05/20 02/05/22 Unknown History release (Adult Low Dose Aspirin) finasteride 5 mg tablet 5 mg PO DAILY 01/05/20 02/05/22 Unknown History alfuzosin 10 mg tablet,extended 10 mg PO DAILY 10/05/21 02/05/22 Unknown History release 24 hr ezetimibe 10 mg tablet 10 mg PO DAILY 10/05/21 02/05/22 Unknown History atorvastatin 20 mg tablet 20 mg PO .COMPLEX 01/11/25 Unknown History Allergies Allergy/AdvReac Type Severity Reaction Status Date / Time hydrocodone (From Vicodin) Allergy Severe unknown Verified 01/11/25 23:26 minocycline (From Minocin) Allergy Unknown unknown Verified 01/11/25 23:26 Penicillins Allergy Unknown unknown Verified 01/11/25 23:26 Sulfa (Sulfonamide Allergy Unknown unknown Verified 01/11/25 23:26 Antibiotics) tramadol Allergy Unknown Unknown Verified 01/11/25 23:27 Review of Systems Review of Systems: All systems reviewed & are unremarkable except as noted in HPI and below Constitutional: Constitutional: Reports no additional constitutional complaints Eyes: Eyes: Reports no additional eye complaints ENT: Reports system reviewed and no additional complaints, except as documented Cardiovascular: Cardiovascular: Reports no additional cardiovascular complaints Respiratory: Respiratory: Reports no additional respiratory complaints Gastrointestinal: Gastrointestinal: Reports no additional gastrointestinal complaints Genitourinary: Genitourinary: Reports no additional male genitourinary complaints Musculoskeletal: Musculoskeletal: Reports no additional musculoskeletal complaints Integumentary/Breasts: Skin/Breast: Reports system reviewed and no additional complaints, except as docu Neurologic: Reports system reviewed and no additional complaints, except as documented Psychiatric: Psychiatric: Reports no additional psychiatric complaints Endocrine: Endocrine: Reports no additional endocrine complaints Hematologic/Lymphatic: Hematologic/Lymphatic: Reports no additional hematologic/lymphatic complaints Allergic/Immunologic: Allergic/Immunologic: Reports no additional allergic/immunologic complaints PMFSH Social History Social History Smoking packs per day: 1 Smoking cigarettes per day: 20.0 Years smoked: 50 Smoking pack-years: 50.00 Smoking status: Current every day smoker Tobacco type: cigarettes Second hand tobacco smoke exposure: No Alcohol intake: current Drinks per week: 3 Substance use: never Substance use type: does not use Spiritual care concerns: No Exam Const: General: healthy appearing Nutritional Appearance: well nourished Orientation/consciousness: patient oriented x3 HENMT: Head: normal to inspection Ears: external ears normal Face/Nose/Sinus: Normal external nose present Eyes: Conjunctivae: conjunctivae normal Pupils: Equal, round and reactive pupils present EOM: EOMs intact bilaterally Neck: Neck: normal visual inspection Chest: Chest palpation & inspection: normal inspection of the chest Resp: Effort & Inspection: normal respiratory effort and labored Auscultation: clear to auscultation bilaterally Cardio: Rate: regular rate Rhythm: regular rhythm Heart sounds: Murmur heart sound present GI: Inspection: non-distended GI Palp: Yes Soft to palpation and No Tenderness to palpation present (GI) Auscultation: normal bowel sounds : General: Yes bladder normal to palpation Back/Spine/Pelvis: Back: no CVA tenderness Skin: General skin exam: normal color Rashes: no rashes Wounds: no wounds Neuro: General: patient oriented x3, moves all extremities and no meningeal signs Extrem: General: normal to inspection Psych: Mental Status: mental status grossly normal Affect: normal affect Attitude: cooperative Course Vital Signs Vital signs: Vital Signs Temperature 36.2 C L 04/21/25 23:07 Pulse Rate 78 04/21/25 23:07 Respiratory Rate 24 H 04/21/25 23:07 Blood Pressure 192/104 H 04/21/25 23:07 Pulse Oximetry 98 04/21/25 23:07 Oxygen Delivery Room Air 04/21/25 23:07 Temperature 36.2 C L 04/21/25 23:07 Pulse Rate 77 04/22/25 01:00 Respiratory Rate 18 04/22/25 01:00 Blood Pressure 135/79 04/22/25 01:00 Pulse Oximetry 91 04/22/25 01:00 Oxygen Delivery Room Air 04/22/25 01:00 Oxygen Flow Rate 2 04/21/25 23:49 [facility] Narrative Medical decision making narrative: Patient is a 74-year-old male with acute onset shortness of breath this evening. Cardiopulmonary workup this time. Patient had a vasovagal event while getting labs drawn. Differential Diagnosis Differential Diagnosis: COPD, pneumonia Medical Records I have reviewed the following patient records and this information was taken into consideration when formulating the assessment and plan.: previous ER visits and previous hospitalizations Lab Data [facility] Lab Attestation statement: I personally reviewed the patient's lab results. 04/21/25 23:27 04/21/25 23:27 Labs: Lab Results 04/21/25 Range/Units 23:27 WBC 12.7 H (4.8-10.8) K/mm3 RBC 4.19 L (4.70-6.10) M/mm3 Hgb 13.3 (12.4-15.3) g/dL Hct 41.1 (37.0-46.0) % MCV 98.1 (78.0-102.0) fL MCH 31.7 H (27.0-31.0) pg MCHC 32.4 (32-36) g/dL RDW 13.7 (11.6-14.4) % Plt Count 269 (150-420) K/mm3 MPV 9.4 (8.7-11.0) fl Immature Gran % (Auto) 0.3 H (0.0-0.0) % Neut % (Auto) 67.5 (50.0-70.0) % Lymph % (Auto) 22.5 (18.0-42.0) % [place] % (Auto) 8.1 (2.0-11.0) % Eos % (Auto) 1.3 (1.0-6.0) % Baso % (Auto) 0.3 (0.0-1.0) % Lymph # (Auto) 2.85 (1.10-4.50) K/mm3 [place] # (Auto) 1.03 H (0.10-0.90) K/mm3 Eos # (Auto) 0.17 (0.02-0.50) K/mm3 Baso # (Auto) 0.04 (0.00-0.10) K/mm3 Abs Immat Gran (auto) 0.04 H (0.00-0.00) K/mm3 Absolute Neuts (auto) 8.52 H (1.70-7.20) K/mm3 Absolute Nucleated RBC 0.00 (0.00-0.00) K/mm3 Nucleated RBC % 0.0 (0-0.0) % PT 10.3 (9.50-12.1) Seconds INR 0.9 APTT 26.2 (23.9-30.70) Sec D-Dimer 0.61 H (0.19-0.50) mg/L Sodium 140 (137-145) mmol/L Potassium 3.8 (3.4-5.0) mmol/L Chloride 108 H (98-107) mmol/L Carbon Dioxide 21 L (22-30) mmol/L Anion Gap 11 (4-12) mmol/L BUN 18 (9-20) mg/dL Creatinine 1.08 (0.7-1.3) mg/dL Estim Creat Clear Calc 59 ml/min Estimated GFR > 60 (59 - ) Glucose 109 (65-110) mg/dL Calculated Osmolality 292 (285-295) mOsm/kg Lactic Acid 1.5 (0.7-2.0) mmol/L Calcium 9.0 (8.4-10.2) mg/dL Total Bilirubin 0.4 (0.2-1.3) mg/dL AST 32 (17-59) U/L ALT 32 (6-50) U/L Alkaline Phosphatase 74 (38-126) U/L Troponin I < 0.012 (0.000-0.034) ng/mL NT-Pro-B Natriuret Pep 205 H (19.9-100) pg/mL Total Protein 7.4 (6.3-8.2) g/dL Albumin 4.6 (3.5-5.1) g/dL Influenza A (RT-PCR) Negative (Negative) Influenza B (RT-PCR) Negative (Negative) RSV (RT-PCR) Negative (Negative) SARS-CoV-2 RNA (RT-PCR) Negative (Negative) ABG Data ABG results: 04/21/25 23:40 Puncture Site Left radial ABG pH 7.43 ABG pCO2 32.9 L ABG pO2 77.9 ABG HCO3 21.2 L ABG O2 Saturation 90.8 L ABG Base Excess -2.3 L Oxyhemoglobin 90.1 L O2 Delivery Device Nasal cannula O2 Liters/Min 2.0 Imaging Data Attestation: I personally reviewed and interpreted this imaging study as follows: Radiologist's impression: CTA of the chest is negative for PE and aneurysms/dissections; there are findings of bilateral upper lobe infectious or inflammatory process ECG Data EKG #1: Attestation: I personally reviewed and interpreted this ECG as follows: ECG completion date: 04/22/25 ECG completion time: 01:32 normal rate, bradycardia, no ectopy, non-specific ST changes, normal QRS, normal QT, left axis and NL axis Discharge Plan Discharge Clinical Impression: Acute exacerbation of chronic obstructive pulmonary disease Pneumonia Qualifiers: Pneumonia type: due to unspecified organism Laterality: bilateral Lung location: upper lobe of lung Qualified Code(s): J18.9 - Pneumonia, unspecified organism Patient Disposition: Home Condition: Stable Instructions: Antibiotic Form, COPD (Chronic Obstructive Pulmonary Disease) (DC), Bacterial Pneumonia (ED) Patient Language: Somali Prescriptions: New prednisone 20 mg tablet 40 mg PO DAILY 3 Days Qty: 6 0RF levofloxacin 750 mg tablet 750 mg PO DAILY 5 Days Qty: 5 0RF No Action ezetimibe 10 mg Tablet 10 mg PO DAILY alfuzosin 10 mg Tablet Extended Release 24 Hr 10 mg PO DAILY Rx Instructions: administer after the same meal each day atorvastatin 20 mg tablet 20 mg PO .COMPLEX Rx Instructions: 20 mg orally mon, wed, fri; finasteride 5 mg tablet 5 mg PO DAILY aspirin [Adult Low Dose Aspirin] 81 mg tablet,delayed release (DR/EC) 81 mg PO DAILY fluticasone propionate [Flonase Allergy Relief] 50 mcg/actuation spray,suspension 1 - 2 spray intranasal BID Qty: 16 3RF Rx Instructions: administer into each nostril azelastine 137 mcg (0.1 %) aerosol,spray See Rx Instructions .ROUTE .COMPLEX Qty: 30 6RF Dose Instruction: USE 1 SPRAY NASALLY DAILY TO TWICE A DAY Rx Instructions: USE 1 SPRAY NASALLY DAILY TO TWICE A DAY Follow-up/Referrals: UNKNOWN,DOCTOR [Non-Staff] Time of Disposition: 03:07
--- NOTE | 2025-04-21 23:09 | ECG_ITS ---
Test Date: 2025-04-21 23:20:07 Measurements Intervals [place] Rate: 73 P: 83 OK: 247 QRS: -8 QRSD: 102 T: 42 QT: 416 QTc: 461 Interpretive Statements SINUS RHYTHM WITH FIRST DEGREE AV BLOCK INCOMPLETE RIGHT BUNDLE BRANCH BLOCK DELAYED PRECORDIAL R/S TRANSITION BORDERLINE ST-T WAVE ABNORMALITY- INF/LAT LEADS BASELINE ARTIFACT- I, II, III, AVR, AVL, AVF, V1, V3-V6 BORDERLINE ECG Compared to ECG 01/11/2025 23:15:24 HEART RATE HAS INCREASED Electronically Signed On 04-22-2025 09:15:18 TIMBER DEADENER by Jaime Wu D.O.
--- NOTE | 2025-04-21 23:19 | PC.NURSE ---
LAB AND XRAY OUTSIDE THE ROOM. WAITING ON EKG TO BE COMPLETED.
[2025-04-21] MEDS: IPRATROPIUM 0.5 MG/ALBUTEROL SULFATE 2.5 MG (BASE) AMPUL.NEB 3 ML INHALATION (23:32)
[2025-04-21 23:36] VITALS: PULSE 36
--- NOTE | 2025-04-21 23:36 | PC.NURSE ---
JAMILA WITH LAB TOOK NEEDLE OUT OF LEFT AC FOR BLOOD CULTURE. PATIENT BECAME PALE, DIAPHORETIC. STATES I FEEL WEIRD. OXYGEN PLACED AT [address] BENOIT WAS NOTIFIED. HEART RATE DROPPED DOWN TO 38 ON MONITOR.
[2025-04-21] MEDS: ATROPINE SULFATE 1 MG/10 ML SYRINGE IV PUSH (23:38)
[2025-04-21 23:40] VITALS: BP 111/81; PULSE 68; RESP 18; O2SAT 99
--- NOTE | 2025-04-21 23:40 | PC.NURSE ---
PATIENT REPORTS THAT HE IS STARTING TO FEEL BETTER AFTER THE ATROPINE. SKIN COLOR HAS RETURNED TO NORMAL. PATIENT REPORTS THAT HE HAS ANXIETY WITH BLOOD WORK BEING DONE. HEART RATE HAS INCREASED TO 68 BPM. AT THE BEDSIDE.
--- OUTSIDE RECORDS SUMMARY | 2025-04-21 23:42 | XMS_ITS | Clinical Summary ---
Author Organization [facility] Address [address] [place] [address] Care Team Providers Care Cut Out Press Operator Name Role Phone Maykel Campo MD Primary Care Provider [phone] Allergies Active Allergy Reactions Criticality Noted Date Comments Hydrocodone-Acetaminophen Itching 03/08/2016 Minocycline Shortness of Breath High 03/08/2016 Penicillins Shortness of Breath High 01/31/2018 Sulfa Antibiotics Shortness of Breath High 8 Tetracyclines & Related Shortness of Breath High 08/2017 Tramadol Unknown,Itching 05/21/2019 Medications EPINEPHrine 0.3 MG/0.3ML injection Inject 0.3 mLs (0.3 mg total) into the muscle as needed for Anaphylaxis. Active finasteride 5 MG tablet Take 1 tablet (5 mg total) by mouth daily. Sat-sat-sat Active alfuzosin ER 10 MG 24 hr tablet Take 1 tablet (10 mg total) by mouth daily. Active ezetimibe 10 MG tablet Take 1 tablet (10 mg total) by mouth daily. 08/21/2021 Active atorvastatin (LIPITOR) 20 MG tablet 1 Sat-- Sat Active aspirin 81 MG chewable tablet Chew by mouth daily. Active omeprazole (PRILOSEC) 40 MG capsule Take 1 capsule (40 mg total) by mouth 2 (two) times a day for 30 days. 60 capsule 3 03/12/2025 04/11/20 25 Active Problems Problem Noted Date Diagnosed Date CAD (coronary artery disease) Hyperlipidemia Encounters Date Type Department Care Team Description 03/12/2025 10:35 AM FIELD SERVICE TECHNICIAN POULTRY - 03/12/2025 11:01 AM FIELD SERVICE TECHNICIAN POULTRY Surgery [facility] [place] [address] [place] [address] [place] [address] James Guevara MD EGD WITH COLD FORCEP BX AND DILATION 03/12/2025 10:01 AM FIELD SERVICE TECHNICIAN POULTRY [place] [address] [place], [place] [address] [place] [address] Leonard Ibarra CRNA 03/12/2025 8:32 AM FIELD SERVICE TECHNICIAN POULTRY - 03/12/2025 10:45 AM FIELD SERVICE TECHNICIAN POULTRY [facility] [address] James Guevara MD Discharge Disposition: Home or Self Care (Routine Discharge) 03/12/2025 Travel 03/08/2025 Travel from Last 3 Months Immunizations Immunization Administration Dates Next Due Fluzone High Dose - >Age 65 (Prefilled Syringe) 05/04/2020 Family History Medical History Relation Comments CHF Father Relation Status Comments Father Maternal Grandfather Maternal Grandmother Paternal Grandfather Paternal Grandmother Social History Tobacco Use Types Packs/Day Years Used Date Smoking Tobacco: Every Day Cigarettes 1 54 Smokeless Tobacco: Never Tobacco Cessation:Ready to Q uit: Not Asked; Counseling Given: Not Answered Comments:Pt said he may someday quit smoking. I gave him the 3-268-XITJ-NOW hotline. He stated he was aware of that #. Alcohol Use Standard Drinks/Week Comments No 0 (1 standard drink = 0.6 oz pur e alcohol) AUDIT-C Answer Date Recorded Frequency of Alcohol Consumption Never 02/04/2018 Average Number of Drinks Not on file 018 Frequency of Binge Drinking Not on file 12/2017 PHQ-2 Answer Date Recorded PHQ-2 Score - If the patient scores above 3, please move on to questions 3-9 0 08/22/2020 Sex and Gender Information Value Date Recorded Sex Assigned at Male 09/14/2024 10:26 AM CDT Legal Sex Male 1:15 PM CDT Gender Identity Not on file Sexual Orientation Not on file Occupation Industry Job Start Date Job End Date retired Not on file Not on file Not on file Last Filed Vital Signs Vital Sign Reading Time Taken Comments Blood Pressure 134/86 03/12/2025 10:35 AM FIELD SERVICE TECHNICIAN POULTRY Pulse 63 03/12/2025 10:35 AM FIELD SERVICE TECHNICIAN POULTRY Temperature 36.1 C (96.9 F) 03/12/2025 10:35 AM FIELD SERVICE TECHNICIAN POULTRY Respiratory Rate 16 03/12/2025 10:35 AM FIELD SERVICE TECHNICIAN POULTRY Oxygen Saturation 98% 03/12/2025 10:35 AM FIELD SERVICE TECHNICIAN POULTRY Inhaled Oxygen Concentration - - Weight 95.3 kg (210 lb) 03/08/2025 9:52 AM FIELD SERVICE TECHNICIAN POULTRY Height 172.7 cm (5' 8) 03/08/2025 9:52 AM FIELD SERVICE TECHNICIAN POULTRY Body Mass Index 31.93 03/08/2025 9:52 AM FIELD SERVICE TECHNICIAN POULTRY Plan of Treatment Health Maintenance Due Date Last Done Comments ASCVD LDL 1950 ASCVD Statin 1950 Hepatitis C 1968 DTaP, Tdap and Td Vaccines (1 - Tdap) 1969 Zoster Vaccines (1 of 2) 2000 RSV Immunization or 60+ Years (1 - Risk 60-74 years 1-dose series) 2010 Annual Medicare Wellness Visit 10/13/2015 Pneumococcal Vaccine: 50+ Years (2 of 2 - PPSV23, PCV20, or PCV21) 05/25/2019 03/30/2019 PHQ-2 (Physician [place]) 04/29/2024 COVID-19 Vaccine ( season) 2024 08/05/2021, 01/21/2021, 07/08/2020, Additional history exists Influenza Adult (#1) 2025 05/04/2020, 01/28/2019, 02/07/2018, Additional history exists Lung Cancer Screening 12/04/2025 12/04/2024, 021 Colorectal Cancer Screening Colonoscopy (10 Years) 10/28/2031 10/27/2021, 10/27/2021 AAA SCREENING Completed 12/04/2024, 10/27, 11/01/2023, Additional history exists Hepatitis A Vaccines Aged Out No long er eligible based on patient's age to complete this topic Meningococcal B Vaccine Aged Out No l onger eligible based on patient's age to complete this topic Meningococcal Vaccine Aged Out No bernarda michelet eligible based on patient's age to complete this topic RSV Immunizations Under 20 Months Aged Out No longer eligible based on patient's age to complete this topic Procedures Procedure Name Priority Date/Time Associated Diagnosis Comments H PYLORI UREASE Routine 03/12/2025 10:05 AM FIELD SERVICE TECHNICIAN POULTRY EGD WITH DILAT STRICTURE 03/12/2025 9:56 AM FIELD SERVICE TECHNICIAN POULTRY DYSPHAGIA,ABDOMIN AL PAIN Case Notes If no answer please leave message with arrival time - 03/08 ENDOSCOPY (SCAN ORDER) 03/12/2025 6:42 AM FIELD SERVICE TECHNICIAN POULTRY PATHOLOGY Routine 03/12/2025 12:00 AM FIELD SERVICE TECHNICIAN POULTRY US AORTA Routine 12/04/2024 2:20 PM CDT Aneurysm of infrarenal abdominal aorta CT LUNG SCREENING Routine 12/04/2024 1:3 5 PM CDT History of tobacco use COLONOSCOPY 10/27/2021 7:07 AM CDT from Last 3 Months or Most Recently Relevant to Health Maintenance Results * H PYLORI UREASE (03/12/2025 10:05 AM FIELD SERVICE TECHNICIAN POULTRY) SPEC DESCRIPTION Gastric Body 03/12/2025 10:24 AM FIELD SERVICE TECHNICIAN POULTRY [facility] SPECIAL REQUESTS NO SPECIAL REQUEST 03/12/2025 10:24 AM FIELD SERVICE TECHNICIAN POULTRY [facility] DIRECT EXAM HELICOBACTER PYLORI SCREEN NEGATIVE 03/13/2025 6:52 PM FIELD SERVICE TECHNICIAN POULTRY [facility] BIOPSY (Gastric Body) 03/12/2025 10:05 AM FIELD SERVICE TECHNICIAN POULTRY us James Guevara MD MICROBIOLOGY - GENERAL ORDERA BLES Final Result [facility] [address] [place] [place] [address], [place] [phone] [facility] [address] [place] [address], [place] [phone] * ENDOSCOPY (SCAN ORDER) (03/12/2025 6:42 AM FIELD SERVICE TECHNICIAN POULTRY) us James Guevara MD SCANNING Final Result * Pathology (03/12/2025 12:00 AM FIELD SERVICE TECHNICIAN POULTRY) PATHOLOGY [facility] Department of Laboratory Medicine [address] [place] [address] , extension [phone] Pathology Report Addendum Surgical Pathology Report Name: CAMRON NEFF Specimen #: [id number] Age: 6 1950 (Age: 74) [facility] Sex: M Procedure Date: 03/12/2025 Hospital #: [id number] Date Received: 03/12/2025 Date Reported: Provider: JAMES GUEVARA MD Source: A: Antrum, biopsies B: GE junction, biopsies Clinical History: Dysphagia and abdominal pain. FINAL DIAGNOSIS: A. Stomach, antrum, biopsy: - Squamocolumnar mucosa with no significant diagnostic abnormality. - See comment. B. Gastroesophageal junction, biopsy: - Gastric antral type mucosa with chronic active gastritis and focal intestinal metaplasia. - An immunostain for Helicobacter pylori is pending with results to follow in an addendum. - Negative for dysplasia - See comment. Diagnosis Comment: Histologically, it appears that the antral and gastroesophageal junction biopsy specimens were placed in the opposite specimen containers. Gross Description: A. Received in formalin, labeled with a patient label and as antrum biopsy is a 0.3 cm piece of colon tissue. The specimen is entirely submitted in cassette A1. B. Received in formalin, labeled with a patient label and as GE junction biopsy are 2 pieces of pink-white tissue each 0.2 cm. The specimen is entirely submitted in cassette B1. Gross examination (when applicable) was performed at [facility], [address] [place] [address]. This case was interpreted and signed out at [facility], [address] [place] [address]. Electronically Signed Out C. Umer Gordon, M.D. Addenda/Procedures Addendum Date Ordered: 03/16/2025 Status: Signed Out Date Complete: 03/16/2025 By: Ruperto Leyva M.D Date Reported: 03/17/2025 Addendum Diagnosis {Not Entered} Addendum Comment An immunohistochemical stain for Helicobacter pylori performed on block B1 is negative. All immunohistochemical and histochemical tests were developed by and performed at [facility], [address] [place] [address]. All tests reported here have not been cleared or approved by the U.S. Food and Drug Administration (FDA). This laboratory is regulated under CLIA as qualified to perform high-complexity testing. These tests are used for clinical purposes. They should not be regarded as investigational or for research. Positive and negative controls show appropriate reactivity. Ruperto Leyva M.D. [facility] BIOPSY GASTRIC BIOPSY SPECIMEN / Unknown 03/12/2025 10:06 AM FIELD SERVICE TECHNICIAN POULTRY Specimen from unspecified body site obtained by biopsy (specimen) GASTRIC BIOPSY SPECIMEN / Unknown 03/12/2025 10:06 AM FIELD SERVICE TECHNICIAN POULTRY us James Guevara MD PATHOLOGY/CYTOLOGY ORDERABLES Final Result [facility] [address] [place] [address], [id number] * US AORTA (12/04/2024 2:20 PM CDT) Anatomical Region Laterality Modality Abdomen Ultrasound 12/04/2024 4:08 PM CDT Impressions 12/04/2024 4:26 PM CDT IMPRESSION: Mild aneurysmal dilatation of the mid to distal abdominal aorta, considered stable. See text. Ordered By: MAYKEL CAMPO Interpreted By: Leonard Love MD, 12/04/2024 4:08 PM Narrative 12/04/2024 4:[address]T [address] [place] [address] Examination: Ultrasound of the abdominal aorta. Exam time: 1357 hours. Clinical history: Follow-up of abdominal aortic aneurysm. Comparison: CT of the abdomen and pelvis, 11/15/2023. Technique: Grayscale and color Doppler images including spectral analysis. Findings: The proximal aorta is normal in caliber. There is mild aneurysmal dilatation of the mid and distal aorta measuring up to 3.4 cm in greatest diameter, considered stable allowing for the different modalities and variations inherent in measurement. There are no signs of leakage. The iliac bifurcation appears normal. There is normal-appearing color flow with triphasic waveforms on Doppler. Procedure Note Leonard Love MD - 12/04/2024 [place] [id number] [facility] [place] [address] Examination: Ultrasound of the abdominal aorta. Exam time: 1357 hours. Clinical history: Follow-up of abdominal aortic aneurysm. Comparison: CT of the abdomen and pelvis, 11/15/2023. Technique: Grayscale and color Doppler images including spectralanalysis. Findings: The proximal aorta is normal in caliber. There is mildaneurysmal dilatation of the mid and distal aorta measuring up to 3.4 cmin greatest diameter, considered stable allowing for the differentmodalities and variations inherent in measurement. There are no signs ofleakage. The iliac bifurcation appears normal. There is normal-appearingcolor flow with triphasic waveforms on Doppler. IMPRESSION: Mild aneurysmal dilatation of the mid to distal abdominal aorta,considered stable. See text. Ordered By: MAYKEL CAMPO Interpreted By: Leonard Love MD, 12/04/2024 4:08 PM us Maykel Campo MD ULTRASOUND Final Result * CT LUNG SCREENING (12/04/2024 1:35 PM CDT) Anatomical Region Laterality Modality Chest Computed Tomogra phy 12/14/2024 2:36 PM CDT Impressions 12/14/2024 2:41 PM CDT IMPRESSION: 1. LUNG-RADS category 2: Negative. Lung nodule(s) with benign appearance or behavior. 2. LUNG-RADS category S: Negative, no new/unknown potentially significant incidental findings requiring urgent additional evaluation. 3. Other incidental findings as above. RECOMMENDATIONS: Continued routine annual LDCT lung screening. Suggest next exam on or around 12/05/2025 Thank you for choosing the [facility] Screening Program. Ordered By: MAYKEL CAMPO Interpreted By: Shala Hasasn MD, 12/14/2024 2:36 PM Narrative 12/14/2024 2:41 PM CDT [place] [id number] [facility] [place] [address] EXAM: LUNG SCREENING LOW-DOSE CT THORAX WITHOUT CONTRAST DATE: 12/04/2024 HISTORY: Asymptomatic patient with history of smoking meeting [facility] high-risk criteria for lung screening. * 74 years * 20 pack years or greater * Current smoker or have quit smoking within the last 15 years COMPARISON: Lung cancer screening CT 08/26/2020 TECHNIQUE: Noncontrast, helical, low-dose CT (LDCT) chest per standard departmental protocol. A dose lowering technique was used for this procedure, which may include, but is not limited to, dose reduction technique, automated exposure control, the use of iterative reconstruction, and ALARA (As Low As Reasonably Achievable) / Image Gently techniques. FINDINGS: Lung Screening Specific (LUNG-RADS): Tiny scattered sub-4 mm nodules which are marked with arrows for ease of identification. Several of these are unchanged from the previous exam. No new suspicious nodule. Potentially Significant Incidentals (LUNG-RADS category S): None. Pulmonary Incidentals: Redemonstration of mid to upper lung zone predominant peripheral reticular and groundglass opacity, greater on the right. Subtle tiny nodularity at some locations. Findings are favored to be related to sequela of prior infection or pneumonitis and appear overall similar to the prior exam. Emphysema. Other Incidentals: Atherosclerotic calcification of the aortic arch. Coronary artery calcification. Multilevel spondylosis. Procedure Note Shala Hassan MD - 12/14/2024 [place] [id number] [facility] [place] [address] EXAM: LUNG SCREENING LOW-DOSE CT THORAX WITHOUT CONTRAST DATE: 12/04/2024 HISTORY: Asymptomatic patient with history of smoking meeting [facility]-risk criteria for lung screening. * 74 years * 20 pack years or greater * Current smoker or have quit smoking within the last 15 years COMPARISON: Lung cancer screening CT 08/26/2020 TECHNIQUE: Noncontrast, helical, low-dose CT (LDCT) chest per standarddepartmental protocol. A dose lowering technique was used for thisprocedure, which may include, but is not limited to, dose reductiontechnique, automated exposure control, the use of iterativereconstruction, and ALARA (As Low As Reasonably Achievable) / Image Gentlytechniques. FINDINGS: Lung Screening Specific (LUNG-RADS): Tiny scattered sub-4 mm nodules which are marked with arrows for ease ofidentification. Several of these are unchanged from the previous exam. Nonew suspicious nodule. Potentially Significant Incidentals (LUNG-RADS category S): None. Pulmonary Incidentals: Redemonstration of mid to upper lung zonepredominant peripheral reticular and groundglass opacity, greater on theright. Subtle tiny nodularity at some locations. Findings are favored danette related to sequela of prior infection or pneumonitis and appear overallsimilar to the prior exam. Emphysema. Other Incidentals: Atherosclerotic calcification of the aortic arch.Coronary artery calcification. Multilevel spondylosis. IMPRESSION: 1. LUNG-RADS category 2: Negative. Lung nodule(s) with benign appearanceor behavior. 2. LUNG-RADS category S: Negative, no new/unknown potentially significantincidental findings requiring urgent additional evaluation. 3. Other incidental findings as above. RECOMMENDATIONS: Continued routine annual LDCT lung screening. Suggestnext exam on or around 12/05/2025 Thank you for choosing the [facility]. Ordered By: MAYKEL CAMPO Interpreted By: Shala Hassan MD, 12/14/2024 2:36 PM us Maykel Campo MD CT Final Result * Colonoscopy (10/27/2021 7:07 AM CDT) us James Guevara MD GI PROCEDURE ORDERABLES Final Result from Last 3 Months or Most Recently Relevant to Health Maintenance Insurance [place] Care Teams Cut Out Press Operator Relationship Specialty Start Date End Date Maykel Campo MD [facility] [place] [id number] PCP - General FAMILY PRACTICE 01/06/25
--- OUTSIDE RECORDS SUMMARY | 2025-04-21 23:42 | XMS_ITS | Encounter Summary ---
Author Organization [facility] Address [facility] [place] [address] Care Team Providers Care Chief Controller Center Name Role Phone Angel Ward MD Primary Care Provider [phone] Akira Wells MD Unavailable Unavailable Avis Arellano MD Unavailable [phone] Luis Catalan MD Unavailable Unavail able Waqar Mak MD Primary Care Provider [phone] Diamond Liriano Primary Care Provider [phone] Elvia Ruff MD Primary Care Provider [phone] Encounter Details Date Type Department Care Team (Late st Contact Info) Description 02/03/2018 Abstract [facility] [address] [place] [phone] Avis Arellano MD [address] [facility] [place] [address] Social History Tobacco Use Types Packs/Day Years Used Date Smoking Tobacco: Every Day Cigarettes 1 54 AUDIT-C Answer Date Recorded Frequency of Alcohol Consumption Never 02/04/2018 Average Number of Drinks Not on file 018 Frequency of Binge Drinking Not on file 12/2017 Sex and Gender Information Value Date Recorded Sex Assigned at Male 09/14/2024 10:26 AM CDT Legal Sex Male 1:15 PM CDT Gender Identity Not on file Sexual Orientation Not on file documented as of this encounter Plan of Treatment Not on file documented as of this encounter Visit Diagnoses Not on filedocumented in this encounter Additional Health Concerns Infection Onset Date Last Indicated Resolved Time COVID-19 Rule Out 10/24/2021 10/24/2021 10/24/2021 7:10 PM CDT documented as of this encounter Care Teams Chief Controller Center Relationship Specialty Start Date End Date Angel Ward MD [address] [place] [address] PCP - General FAMILY PRACTICE 01/31/18 06/01/20 [place] [address] PCP - General FAMILY PRACTICE 06/02/20 10/31/23 Diamond Liriano APNP [address] [place] [address] PCP - General NURSE PRACTITIONER 11/01/23 01/05/25 Elvia Ruff MD [address] [place] [address] PCP - General FAMILY PRACTICE 01/06/25 [place] [address] [employer] Manager Digital Ad Operations INTERVENTIONAL CARDIOLOGY 01/31/18 06/29/19 [place] [address] [place] [address] CARDIOVASCULAR DISEASE 02/04/18 07/05/19 [place] [address] Consulting Physician CARDIOVASCULAR DISEASE 05/21/19 documented as of this encounter
--- OUTSIDE RECORDS SUMMARY | 2025-04-21 23:42 | XMS_ITS | Encounter Summary ---
Author Organization [facility] Address [facility] [place] [address] Care Team Providers Care Staff Sonographer Name Role Phone Angel Ward MD Primary Care Provider [phone] Akira Wells MD Unavailable Unavailable Avis Arellnao MD Unavailable [phone] Luis Catalan MD Unavailable Unavail able Waqar Mak MD Primary Care Provider [phone] Diamond Liriano Primary Care Provider [phone] Elvia Ruff MD Primary Care Provider [phone] Encounter Details Date Type Department Care Team (Late st Contact Info) Description 10/04/2018 Abstract [facility] [address] [place] [address] , Generic Conversion, Social History Tobacco Use Types Packs/Day Years Used Date Smoking Tobacco: Every Day Cigarettes 1 54 Smokeless Tobacco: Never Alcohol Use Standard Drinks/Week Comments No 0 [...] documented as of this encounter Care Teams Staff Sonographer Relationship Specialty Start Date End Date Angel Ward MD [address] [place] [address] PCP - General FAMILY PRACTICE 01/31/18 06/01/20 Waqar Mak MD [address] [place] [address] PCP - General FAMILY PRACTICE 06/02/20 10/31/23 Diamond Liriano APNP [address] [place] [address] PCP - General NURSE PRACTITIONER 11/01/23 01/05/25 Elvia Ruff MD [address] [address] PCP - General FAMILY PRACTICE 01/06/25 Akira Wells MD [address] [place] [address] [employer] Digital Strategist INTERVENTIONAL CARDIOLOGY 01/31/18 06/29/19 [place] [address] [place] [address] CARDIOVASCULAR DISEASE 02/04/18 07/05/19 [place] [address] Consulting Physician CARDIOVASCULAR DISEASE 05/21/19 documented as of this encounter
[2025-04-21 23:47] VITALS: BP 89/53; PULSE 57; RESP 13; O2SAT 100
--- NOTE | 2025-04-21 23:48 | PC.NURSE ---
PATIENT IS SITTING UP ON STRETCHER. REPORTS THAT HE IS FEELING FINE AT THIS TIME. PATIENT IS ON CRA OFFICER WITH HR OF 58 BPM. CALL LIGHT IN REACH.
[2025-04-21 23:49] VITALS: BP 82/46; PULSE 55; RESP 10; O2SAT 100
[2025-04-21 23:52] LABS: HCO3 ABG 21.2 mmol/L (23-29); Oxygen Saturation ABG 90.8 % (95-97); PCO2 ABG 32.9 mmHg (35-45); PO2 ABG 77.9 mmHg (75-85)
[2025-04-21 23:55] LABS: Hematocrit 41.1 % (37.0-46.0); Hemoglobin 13.3 g/dL (12.4-15.3); Immature Granulocyte Percent A 0.3 % (0.0-0.0); Lymphocytes Absolute Auto 2.85 K/mm3 (1.10-4.50); Mean Corpuscular HGB Conc 32.4 g/dL (32-36); Mean Corpuscular Hemoglobin 31.7 pg (27.0-31.0); Mean Corpuscular Volume 98.1 fL (78.0-102.0); Nucleated Red Blood Cells Absolute Auto 0.00 K/mm3 (0.00-0.00); Nucleated Red Blood Cells Perc 0.0 % (0-0.0); Platelet Count Result 269 K/mm3 (150-420); Red Blood Count 4.19 M/mm3 (4.70-6.10); White Blood Count 12.7 K/mm3 (4.8-10.8)
[2025-04-21 23:57] LABS: Liters per Minute 2.0 LPM; Modified Allen's Test Pass; Site Drawn LEFT RADIAL
[2025-04-22 00:01] VITALS: BP 114/69; PULSE 66; RESP 11; O2SAT 100
[2025-04-22 00:07] LABS: Alanine Aminotransferase 32 U/L (6-50); Albumin Level 4.6 g/dL (3.5-5.1); Alkaline Phosphatase 74 U/L (38-126); Anion Gap 11 mmol/L (4-12); Aspartate Amino Transferase 32 U/L (17-59); Bilirubin,Total 0.4 mg/dL (0.2-1.3); Blood Urea Nitrogen 18 mg/dL (9-20); Calcium 9.0 mg/dL (8.4-10.2); Carbon Dioxide 21 mmol/L (22-30); Chloride 108 mmol/L (98-107); Estimated CRCL calculation 59 ml/min; Estimated Glomerular Filt Rate > 60; Glucose 109 mg/dL (65-110); Osmolality Calculated 292 mOsm/kg (285-295); Potassium 3.8 mmol/L (3.4-5.0); Sodium 140 mmol/L (137-145); Total Protein 7.4 g/dL (6.3-8.2)
[2025-04-22 00:10] LABS: INR 0.9; Partial Thromboplastin Time 26.2 Sec (23.9-30.70); Prothrombin Time 10.3 Seconds (9.50-12.1)
[2025-04-22 00:16] VITALS: BP 123/73; PULSE 72; RESP 13; O2SAT 97
--- NOTE | 2025-04-22 00:18 | PC.NURSE ---
PATIENT IS SITTING UP ON STRETCHER. AT HIS SIDE. DENIES ANY NEEDS AT THIS TIME. STATES HE IS FEELING FINE. AWAITING LAB WORK RESULTS
[2025-04-22 00:19] LABS: NT Pro B Type Natriuretic Pept 205 pg/mL (19.9-100); Troponin I < 0.012 ng/mL (0.000-0.034)
--- NOTE | 2025-04-22 00:20 | PC.NURSE ---
DR BENOIT NOTIFIED OF ELEVATED D DIMER.
[2025-04-22 00:31] VITALS: BP 133/70; PULSE 72; RESP 11; O2SAT 97
[2025-04-22 00:31] LABS: Influenza A QL RT-PCR Negative (Negative); Influenza B QL RT-PCR Negative (Negative); RSV RNA, RT-PCR Negative (Negative); SARS-CoV-2 RNA PCR Negative (Negative)
--- NOTE | 2025-04-22 00:33 | PC.NURSE ---
NATALI WITH RADIOLOGY AT THE BEDSIDE
[2025-04-22 00:45] VITALS: BP 151/76; PULSE 79; RESP 16; O2SAT 99
--- NOTE | 2025-04-22 00:45 | PC.NURSE ---
RETURNED FROM CT. WARM BLANKETS GIVEN. CALL LIGHT IN REACH. DENIES ANY NEEDS AT THIS TIME
[2025-04-22 01:00] VITALS: BP 135/79; PULSE 77; RESP 18; O2SAT 91
--- NOTE | 2025-04-22 01:28 | PC.NURSE ---
RESTING QUIETLY ON STRETCHER. NO NEEDS VOICED. WAITING ON CT RESULTS. CALL LIGHT IN REACH. AT THE BEDSIDE
--- NOTE | 2025-04-22 01:46 | PC.NURSE ---
PATIENT AMBULATED TO THE BATHROOM AND BACK TO ROOM. WOB NON LABORED AT THIS TIME. STATES HIS BREATHING IS BETTER. CURRENTLY WAITING ON CT RESULTS
[2025-04-22] MEDS: levoFLOXacin TAB 500 MG, levoFLOXacin TAB 250 MG 750 MG PO (03:14)
[2025-04-22 03:26] VITALS: BP 142/88; PULSE 76; RESP 18; O2SAT 97
--- NOTE | 2025-04-26 13:34 | PC.NURSE ---
blood preliminary no growth
== END 2025-04-22 03:26 | disposition home or self-care (01) ==
PROVIDERS: Emergency Provider Emergency Medicine
DX: J44.1 Chronic obstructive pulmonary disease with (acute) exacerbation (principal); J18.9 Pneumonia, unspecified organism; F17.210 Nicotine dependence, cigarettes, uncomplicated; Z20.822 Contact with and (suspected) exposure to COVID-19
CPT/HCPCS: 36415; 36600; 71045; 71275; 80053; 82805; 83605; 83880; 84484; 85025; 85380; 85610; 85730; 87637; 93005; 96374; 96375; 99284; A9270; J0461; J2919; Q9967